=== PATIENT | female | born 1985 | race African-American/Black ===

== ENCOUNTER 2020-08-11 23:45 | Emergency (ER) | payer BC ==
[~2020-08-11] VITALS: Ht 149.9 cm; Wt 73.0 kg
[2020-08-11 23:53] VITALS: Ht 149.9 cm; Wt 73.0 kg
[2020-08-12 01:01] VITALS: BP 145/92
== END 2020-08-12 01:01 | disposition home or self-care (01) ==
LOC: ED 23:45
DX: L03.011 Cellulitis of right finger (principal)
CPT/HCPCS: J2001